=== PATIENT | female | born 1985 | race Caucasian/White ===

== ENCOUNTER → 2024-09-19 | Outpatient (CLI) | payer BC, SELFPAY ==
--- NOTE | 2024-09-19 10:02 | XR_ITS ---
Examination: Shoulder,left, 3 views Technique: Shoulder AP internal rotation, AP external rotation, Y view shoulder, 3 views Exam date and time :September 19, 2024 1013 hours INDICATIONS: Left shoulder dislocation 2 weeks ago with persistent pain FINDINGS: No current shoulder fracture or dislocation No arthritic change No calcific tendinitis IMPRESSION: No current shoulder dislocation No fracture
== END | disposition home or self-care (01) ==
LOC: CDIM 09:44
PROVIDERS: PCP Family Medicine; Referring Provider Registered Nurse; Visit Provider Registered Nurse
DX: M25.512 Pain in left shoulder (principal)
CPT/HCPCS: 73030